=== PATIENT | female | born 1980 | race Caucasian/White ===

== ENCOUNTER → 2017-03-24 | Outpatient (CLI) | payer OTHER | END | disposition home or self-care (01) | LOC: LABWHC1 09:20 | PROVIDERS: ATTEND Obstetrics & Gynecology | DX: Z13.1 Encounter for screening for diabetes mellitus (principal); Z13.220 Encounter for screening for lipoid disorders | CPT/HCPCS: 36415; 80061; 82947; 84439; 84443 ==

== ENCOUNTER 2017-06-07 06:30 | Emergency (ER) | payer OTHER ==
[2017-06-07] MEDS ORDERED: KETOROLAC 60 MG/2 ML VIAL IVP STA (07:38)
[2017-06-07] MEDS ORDERED: ONDANSETRON 4 MG/2 ML VIAL IVP STA (07:38)
[2017-06-07] MEDS ORDERED: HYDROmorphone 1 MG/ML 1 ML SYRINGE IVP STA ×2 (07:38→08:16)
[2017-06-07] MEDS ORDERED: HYDROmorphone 0.5 MG/0.5 ML SYRINGE IVP STA (08:03)
[2017-06-07] MEDS ORDERED: DIAZEPAM 5 MG/ML 2 ML INJ IVP STA (08:31)
[2017-06-07] MEDS ORDERED: DIAZEPAM 5 MG/ML (10 ML MDV) IVP STA (08:34)
--- NOTE | 2017-06-07 08:38 | ED ---
General Adult HPI - General Chief complaint: Back Pain/Injury Stated complaint: back pain Time Seen by Provider: 06/07/17 07:00 Source: patient, RN notes reviewed Mode of arrival: wheelchair Limitations: no limitations - History of Present Illness Initial comments: This is a 36-year-old female who presents to the emergency department complaining of severe lower back pain. Patient states she had a hysterectomy one month ago. Patient states since Wednesday she had little lower back pain as she did on Wednesday. Patient states this morning she woke up in excruciating pain. Anytime she moved twisted or bent she was in severe pain. Patient denies any injury patient denies any heavy lifting. Patient states her job consists of her mostly sitting at a desk. Patient states she has no numbness or weakness. Patient does not notice any pain radiating down her legs. Patient denies any incontinence of urine or urinary retention. Patient states if she lies still she has no pain. - Related Data Home Medications Medication Instructions Recorded Confirmed Medroxyprogesterone Acetate 150 mg IM Q90D 06/07/17 06/07/17 [Depo-Provera] Previous Rx's Medication Instructions Recorded Ibuprofen [Motrin] 600 mg PO Q6HR PRN #30 tab 05/13/17 Diazepam [Valium] 5 mg PO Q8H #10 tab 06/07/17 Hydrocodone/Acetaminophen [Kevil 1 each PO Q4HR PRN #20 tab 06/07/17 5-325] Ibuprofen [Motrin] 600 mg PO Q6HR PRN #20 tab 06/07/17 Sulfamethox-Tmp 800-160Mg [Bactrim 1 each PO Q12HR #14 tab 06/07/17 DS 800-160 mg] predniSONE 40 mg PO DAILY #8 tab 06/07/17 Allergies Allergy/AdvReac Type Severity Reaction Status Date / Time tree nut Allergy Anaphylaxis Verified 06/07/17 07:45 Review of Systems ROS Statement: Those systems with pertinent positive or pertinent negative responses have been documented in the HPI. ROS Other: All systems not noted in ROS Statement are negative. Past Medical History Past Medical History: No Reported History History of Any Multi-Drug Resistant Organisms: None Reported Past Surgical History: Hysterectomy Past Psychological History: No Psychological Hx Reported Smoking Status: Current every day smoker Past Alcohol Use History: Occasional Past Drug Use History: None Reported General Exam - General Exam Comments Initial Comments: GENERAL: Patient is well-developed and well-nourished. Patient is nontoxic and well- hydrated and is in moderate distress. ENT: Neck is soft and supple. No significant lymphadenopathy is noted. Oropharynx is clear. Moist mucous membranes. Neck has full range of motion without eliciting any pain. EYES: The sclera were anicteric and conjunctiva were pink and moist. Extraocular movements were intact and pupils were equal round and reactive to light. Eyelids were unremarkable. PULMONARY: Unlabored respirations. Good breath sounds bilaterally. No audible rales rhonchi or wheezing was noted. CARDIOVASCULAR: There is a regular rate and rhythm without any murmurs gallops or rubs. ABDOMEN: Soft and nontender with normal bowel sounds. No palpable organomegaly was noted. There is no palpable pulsatile mass. SKIN: Skin is clear with no lesions or rashes and otherwise unremarkable. NEUROLOGIC: Patient is alert and oriented x3. Cranial nerves II through XII are grossly intact. Motor and sensory are also intact. Normal speech, volume and content. Symmetrical smile. . MUSCULOSKELETAL: Normal extremities with adequate strength and full range of motion. No lower extremity swelling or edema. No calf tenderness. Straight leg is positive bilaterally at about 60. Back pain is not reproducible. LYMPHATICS: No significant lymphadenopathy is noted PSYCHIATRIC: Normal psychiatric evaluation. Normal interpersonal interactions appears functionally intact in deals appropriately with others. No signs of depression. No signs of anxiety. No delusions. No hallucinations. Limitations: no limitations Course Vital Signs 06/07/17 06/07/17 06:33 10:11 Temperature 97.8 F 97 F L Pulse Rate 90 71 Respiratory 20 16 Rate Blood Pressure 141/92 150/76 O2 Sat by Pulse 96 98 Oximetry Medical Decision Making - Medical Decision Making Patient's CT of the lumbar spine show a herniated disc at L4-L5. Patient received pain medications in the emergency department felt considerably better though not pain-free. Patient has not had any neurologic symptoms whatsoever. Patient should return to the emergency department if the pain is worse or if there are any neurological deficits - Lab Data Lab Results 06/07/17 Range/Units 08:53 Urine Color Yellow Urine Appearance Cloudy H (Clear) Urine pH 5.5 (5.0-8.0) Ur Specific [place] 1.012 (1.001-1.035) Urine Protein Negative (Negative) Urine Glucose (UA) Negative (Negative) Urine Ketones Negative (Negative) Urine Blood Moderate H (Negative) Urine Nitrite Negative (Negative) Urine Bilirubin Negative (Negative) Urine Urobilinogen <2.0 (<2.0) mg/dL Ur Leukocyte Esterase Large H (Negative) Urine RBC 1 (0-5) /hpf Urine WBC 33 H (0-5) /hpf Ur Squamous Epith Cells 1 (0-4) /hpf Urine Bacteria Rare H (None) /hpf Urine Mucus Rare H (None) /hpf Disposition Clinical Impression: Herniated lumbar intervertebral disc, Urinary tract infection Disposition: HOME SELF-CARE Condition: Good Instructions: Acute Low Back Pain (ED) Additional Instructions: Patient should start taking Motrin once the prednisone is done. Prescriptions: Diazepam [Valium] 5 mg PO Q8H #10 tab Hydrocodone/Acetaminophen [Kevil 5-325] 1 each PO Q4HR PRN #20 tab PRN Reason: Pain Ibuprofen [Motrin] 600 mg PO Q6HR PRN #20 tab PRN Reason: For pain predniSONE 40 mg PO DAILY #8 tab Sulfamethox-Tmp 800-160Mg [Bactrim DS 800-160 mg] 1 each PO Q12HR #14 tab Referrals: Justino Tran DO [Primary Care Provider] - 1-2 days Time of Disposition: 10:35
--- NOTE | 2017-06-07 08:50 | CT ---
EXAMINATION TYPE: CT lumbar spine wo con DATE OF EXAM: 06/07/2017 COMPARISON: NONE HISTORY: Patient complains of new onset low back pain with no known injust. Patient is [address] DLP: 1655.[address] of the lumbar spine was performed. Bone and soft tissue window settings are submitted as well as coronal and sagittal reconstructions. L1-L2: Normal disc space height. No disc herniation protrusion or central stenosis. No facet joint arthropathy. No evidence for foraminal encroachment. L2-L3: Normal disc space height. No disc herniation protrusion or central stenosis. No facet joint arthropathy. No evidence for foraminal encroachment. L3-L4: Normal disc space height. No disc herniation protrusion or central stenosis. No facet joint arthropathy. No evidence for foraminal encroachment. L4-L5: Mild disc space narrowing. Left paracentral disc herniation with left lateral recess stenosis. No evidence for central stenosis. Mild left foraminal encroachment. L5-S1: Normal disc space height. No disc herniation protrusion or central stenosis. No facet joint arthropathy. No evidence for foraminal encroachment. No paraspinal masses are identified. Lumbar segments are free if fracture. IMPRESSION: 1. L4-5 left lateral recess stenosis secondary to subligamentous disc herniation.
[2017-06-07] MEDS ORDERED: methylPREDNISolone SOD SUCCI 125 MG/2 ML VIAL IV STA (09:01)
[2017-06-07 09:12] LABS: Appearance,Urine Cloudy (Clear); Bacteria,Urine Rare /hpf; Bilirubin,Urine Negative (Negative); Glucose,Urine (UA) Negative (Negative); Ketones,Urine Negative (Negative); Leukocyte Esterase,Urine Large (Negative); Mucus,Urine Rare /hpf; Nitrite,Urine Negative (Negative); PH, Urine 5.5 (5.0-8.0); Particle Count 6934; Protein,Urine Negative (Negative); RBC,Urine 1 /hpf (0-5); Specific Gravity,Urine 1.012 (1.001-1.035); Squamous Epithelial Cell,Urine 1 /hpf (0-4); UA Billing (MACRO vs. MICRO) MICRO; Urobilinogen,Urine <2.0 mg/dL (<2.0); WBC,Urine 33 /hpf (0-5)
[2017-06-07] MEDS ORDERED: cefTRIAXone IN SWFI 1,000 MG/10 ML SYRINGE IVP STA (09:22)
[2017-06-07 10:13] VITALS: BP 150/76; PULSE 71; RESP 16; TEMP 97
== END 2017-06-07 11:07 | disposition home or self-care (01) ==
LOC: EC 06:30
DX: M51.26 Other intervertebral disc displacement, lumbar region (principal); N39.0 Urinary tract infection, site not specified; F17.200 Nicotine dependence, unspecified, uncomplicated; Z79.899 Other long term (current) drug therapy; Z91.018 Allergy to other foods
CPT/HCPCS: 51798; 81001; 87086; 72131; 99284; 96374; 96375 ×5; 96376; J2930; J2405; J0696; J1885; J1170 ×2; J3360

== ENCOUNTER → 2020-10-14 | Outpatient (CLI) | payer OTHER ==
[2020-10-14 11:37] LABS: Appearance,Urine Cloudy (Clear); Bilirubin,Urine Negative (Negative); Blood,Urine Negative (Negative); Color,Urine Yellow; Glucose,Urine (UA) Negative (Negative); Ketones,Urine Negative (Negative); Leukocyte Esterase,Urine Negative (Negative); Nitrite,Urine Negative (Negative); PH, Urine 5.5 (5.0-8.0); Protein,Urine Negative (Negative); Specific Gravity,Urine 1.018 (1.001-1.035); Urobilinogen,Urine <2.0 mg/dL (<2.0); WBC,Urine 3 /hpf (0-5)
[2020-10-14 11:38] LABS: Mucus,Urine Few /hpf; RBC,Urine 1 /hpf (0-5); Squamous Epithelial Cell,Urine 4 /hpf (0-4)
[2020-10-14 16:35] LABS: HCT 47.5 % (37.2-46.3); HGB 15.2 g/dL (12.0-15.0); MCV 90.5 fL (80.0-97.0); Platelet Count 284 X 10*3/uL (140-440); RBC 5.25 X 10*6/uL (4.10-5.20); RDW 13.2 % (11.5-14.5); WBC 8.71 X 10*3/uL (4.50-10.00)
[2020-10-14 17:31] LABS: African American GFR (CKD) 126.5 (60.0-200.0); Anion Gap 6.8 mmol/L (4.00-12.00); Calcium 9.6 mg/dL (8.7-10.3); Carbon Dioxide 28.2 mmol/L (21.6-31.8); Chol/HDL Ratio 4.04; LDL Cholesterol,Calculated 124.2 mg/dL (0.0-131.0); Non-African American GFR(CKD) 109.1 (60.0-200.0); Potassium 4.8 mmol/L (3.5-5.5); VLDL Calculation 36.8 mg/dL (5.00-40.00)
[2020-10-14 17:39] LABS: T4, Free (Free Thyroxine) 1.1 ng/dL (0.80-1.80)
[2020-10-14 20:57] LABS: Hemoglobin A1C 5.5 % (4.0-6.0)
== END | disposition home or self-care (01) ==
LOC: LABWHC1 10:17
PROVIDERS: ATTEND Family Medicine
DX: Z00.00 Encounter for general adult medical examination without abnormal findings (principal); E66.1 Drug-induced obesity
CPT/HCPCS: 36415; 80048; 80061; 81001; 82306; 83036; 84439; 84443; 84450; 84460; 85027

== ENCOUNTER → 2020-12-04 | Outpatient (CLI) | payer OTHER ==
--- NOTE | 2020-12-04 18:51 | CONS ---
CONSULTATION DATE OF SERVICE: 12/04/2020 This 40-year-old lady has been evaluated in [facility] for possible obstructive sleep apnea-hypopnea syndrome. HISTORY OF PRESENT ILLNESS/SLEEP-WAKE EVALUATION: Patient's usual sleep schedule on working days is from 11 p.m. to 6 a.m., on weekends from 11 or 12 midnight until 7 or 8 a.m. She may have problems with falling asleep, although no TV in bedroom. She sleeps in different positions. She has loud snoring and witnessed episodes of stopped breathing during sleep. The patient wakes up from sleep several times and occasionally has nocturia. She usually does not take any naps. [place]pine Sleepiness Scale is 4. No history of hypnagogic hallucinations, sleep paralysis or cataplexy. PAST MEDICAL HISTORY: Positive for endometriosis. MEDICATIONS: None. SOCIAL HISTORY: Positive for smoking for about 25 pack/years, presently a half pack a day. Alcohol consumption: none. PAST SURGICAL HISTORY: Total hysterectomy in 2017 for endometriosis. FAMILY HISTORY: Positive for cancer, bronchitis, stroke, epilepsy, hypertension, heart problems. REVIEW OF SYSTEMS: No fevers. No double vision. No recent chest pain. No shortness of breath. No abdominal pain. No bleeding episodes. No blood in the urine. No seizure episodes. Multiple awakenings from sleep, loud snoring. PHYSICAL EXAMINATION: GENERAL: A pleasant lady without distress. VITAL SIGNS: BP 131/63, HR 89, RR 12, height 5 feet 8 inches, weight 259.4, temperature 97.9, oxygen saturation at room air 97%. BMI 39.3. HEENT: PERRLA, EOMI. Evaluation of oropharynx showed tongue protrudes midline. Wide pillars. Big uvula. Small oropharyngeal air space. NECK: Supple. No JVD. Thyroid is not palpable. Neck measures 16-1/2 inches in circumference. LUNGS: Clear to percussion and to auscultation. Good air exchange. No wheezing or rhonchi. HEART: S1, S2 regular. No murmurs, gallops or rubs. ABDOMEN: Obese. EXTREMITIES: No clubbing or cyanosis. PLASTIC INJECTION MOLD MAKER: Awake, alert, and oriented X3. Cranial nerves 2 to 7 intact. There is no fasciculation or atrophy. noted. No focal deficits observed. IMPRESSION: 1. Loud snoring, witnessed episodes of stopped breathing during sleep, wide neck for female, 16-1/2 inches in circumference, multiple awakenings from sleep; obstructive sleep apnea-hypopnea syndrome. 2. Obesity. BMI 39.3. 3. History of smoking for about 25 pack/years. Continues to smoke a pack a day. 4. Status post total hysterectomy 2017 for endometriosis. PLAN: 1. Polysomnography for evaluation of patient's breathing during sleep. 2. CPAP/BiPAP titration if sleep study confirms obstructive sleep apnea-hypopnea syndrome. 3. Preferable position during sleep on the side. 4. No driving if patient feels any sleepiness. 5. I will see patient for follow up visit to explain results of testing and following plan. Thank you very much for allowing me to participate in the management of your patient. Sincerely, Hai Bernal MD, PhD, FAASM Diplomat of [employer] [facility] [place] MMODL / IJN: [id number] /
== END ==
CPT/HCPCS: 99211

== ENCOUNTER → 2020-12-12 | Outpatient (CLI) | payer OTHER | END | disposition home or self-care (01) | LOC: LABWHC1 15:29 | PROVIDERS: ATTEND Family Medicine | DX: R74.01 Elevation of levels of liver transaminase levels (principal) | CPT/HCPCS: 36415; 84460 ==

== ENCOUNTER → 2022-11-04 | Outpatient (CLI) | payer BC ==
[~2022-11-04] MED LIST: REGADENOSON 0.4 MG/5 ML SYRINGE IV PRN
--- NOTE | 2022-11-04 11:54 | NM ---
EXAMINATION TYPE: NM stress lexiscan cardiolite DATE OF EXAM: 11/04/2022 COMPARISON: NONE HISTORY: R07.9 TECHNIQUE: After the intravenous administration of 9.7 mCi Tc 99m Sestamibi - Cardiolite resting SPE CT images acquired 53 minutes post injection. The patient received 0.4mg Lexiscan, 26 mCi Tc 99m Sestamibi - Stress images obtained 33 minutes post injection FINDINGS: Review of stress and rest SPECT images demonstrates no distinct perfusion abnormality. There is some artifact along the inferior and septal torres. Gated analysis shows normal wall motion with an estima patrick left ventricular ejection fraction of 66 %. TID is 0.98 which is within normal limits. IMPRESSION: No convincing scintigraphic evidence for reversible ischemia.
--- NOTE | 2022-11-04 11:59 | CA ---
Lexiscan Nuclear Stress Test Report Name: Vicky Reynolds Exam Date: 11/04/2022 10:12 Exam Location: [place] Stress Ht (in): 68 Wt (lb): 265 BSA: 2.30 Ordering Phys: Justino Tran DO Referring Phys: Justino Tran DO Technologist: Krzysztof Kee Age: 42 Gender: F : 1980 Procedure CPT: Indications: R07.9 ICD-10 Codes: Patient History: Medications: VIT D3,,,,,, ESCITALOPRAM,,,,,, ALPRAZOLAM,,,,, Meds past 24 hrs: Pretest Chest Pain: STRESS TEST Lexiscan Protocol Exercise Duration (min:sec): 01:[address] Depressions (mm): Angina Score: Lopez Score: Resting HR (bpm): 72 Peak HR (bpm): 105 Resting BP (mmHg): 125 / 88 Peak BP (mmHg): 132 / 89 MPHR: 179 Target HR: 152 % MPHR: 59 METS: 1.0 Total Dose: Peak Dose: Atropine: Double Product: 34594 BP Response: Stress Termination: INFUSION COMPLETE Stress Symptoms: DIFFICULTY IN BREATHING Stress Summary: ECG ANALYSIS Resting ECG: Normal sinus rhythm normal axis normal intervals Stress ECG: Patient received Lexiscan as a protocol did not have chest pain or diagnostic ST segment depression CONCLUSIONS Negative stress test by EKG criteria Cardiolite portion of the stress test will be reported separately Dr. Tito Chadwick MD (Electronically Signed) Final Date: 04 November 2022 11:58
== END | disposition home or self-care (01) ==
LOC: RADNMMAIN 08:16
PROVIDERS: ATTEND Family Medicine
DX: R07.9 Chest pain, unspecified (principal)
CPT/HCPCS: 93017; 78452; A9500; J2785

== ENCOUNTER → 2022-11-25 | Outpatient (CLI) | payer BC ==
--- NOTE | 2022-11-26 12:53 | CA ---
Transthoracic Echo Report Name: Vicky Reynolds Age: 42 Gender: F : 1980 Exam Date: 11/25/2022 14:01 Exam Location: [place] Echo Ht (in): 69 Wt (lb): 265 Ordering Physician: Justino Tran DO Attending/Referring Phys: Manager Visual Lexi Cohen RDCS Procedure CPT: Indications: R07.89 Atypical Chest Pain Cardiac Hx: Technical Quality: Fair Contrast 1: Total Dose (mL): Contrast 2: Total Dose (mL): MEASUREMENTS (Male / Female) Normal Values 2D ECHO LV Diastolic Diameter PLAX 4.5 cm 4.2 - 5.9 / 3.9 - 5.3 cm LV Systolic Diameter PLAX 2.9 cm IVS Diastolic Thickness 1.2 cm 0.6 - 1.0 / 0.6 - 0.9 cm LVPW Diastolic Thickness 1.1 cm 0.6 - 1.0 / 0.6 - 0.9 cm LV Relative Wall Thickness 0.5 RV Internal Dim ED PLAX 3.0 cm M-MODE Aortic Root Diameter MM 2.7 cm LA Systolic Diameter MM 3.7 cm LA Ao Ratio MM 1.3 AV Cusp Separation MM 1.8 cm DOPPLER AV Peak Velocity 163.0 cm/s AV Peak Gradient 10.6 mmHg AV Mean Velocity 127.4 cm/s AV Mean Gradient 7.0 mmHg AV Velocity Time Integral 30.0 cm LVOT Peak Velocity 152.4 cm/s LVOT Peak Gradient 9.3 mmHg LVOT Velocity Time Integral 28.7 cm Mitral E Point Velocity 85.0 cm/s Mitral A Point Velocity 109.9 cm/s Mitral E to A Ratio 0.8 MV Deceleration Time 204.4 ms MV E' Velocity 6.4 cm/s Mitral E to MV E' Ratio 13.4 FINDINGS Left Ventricle Left ventricular cavity size normal. Mildly increased left ventricular wall thickness. Normal left ventricular systolic function with no obvious regional wall motion abnormalities. Left ventricular ejection fraction is estimated at 55-60 %. Right Ventricle Normal right ventricular size and function. Right ventricular systolic pressure within normal limits. Right Atrium Normal right atrial size. Left Atrium Normal left atrial size. Mitral Valve Structurally normal mitral valve. Mild mitral regurgitation. Aortic Valve No aortic valve stenosis or regurgitation. Tricuspid Valve Structurally normal tricuspid valve. Trace to mild tricuspid regurgitation. Pulmonic Valve Structurally normal pulmonic valve. Pericardium No pericardial effusion. Aorta Normal size aortic root and proximal ascending aorta. CONCLUSIONS Normal left ventricular ejection fraction 55-60% Mildly increased left ventricular wall thickness Mild mitral regurgitation Trace to mild tricuspid regurgitation Previewed by: Dr. Sarwat Maravilla DO (Electronically Signed) Final Date: 26 Nov 2022 12:52
== END | disposition home or self-care (01) ==
LOC: RADECHMAIN 13:55
PROVIDERS: ATTEND Family Medicine
DX: I08.1 Rheumatic disorders of both mitral and tricuspid valves (principal); R07.89 Other chest pain
CPT/HCPCS: 93306